=== PATIENT | female | born 1965 | race Caucasian/White ===

== ENCOUNTER → 2016-12-08 | Outpatient (CLI) | payer OTHER | LOC: CIMAGING 11:07 | DX: Z12.31 Encounter for screening mammogram for malignant neoplasm of breast (principal) | CPT/HCPCS: G0202 ==

== ENCOUNTER → 2017-12-07 | Outpatient (CLI) | payer OTHER | LOC: CIMAGING 17:10 | PROVIDERS: ATTEND Family Medicine | DX: R07.81 Pleurodynia (principal) | CPT/HCPCS: 71101-PO ==

== ENCOUNTER → 2018-07-12 | Outpatient (CLI) | payer OTHER | LOC: CIMAGING 12:21 | PROVIDERS: ATTEND Family Medicine | DX: R91.8 Other nonspecific abnormal finding of lung field (principal); J45.30 Mild persistent asthma, uncomplicated; M32.9 Systemic lupus erythematosus, unspecified | CPT/HCPCS: 71046-PO ==

== ENCOUNTER → 2018-10-01 | Outpatient (CLI) | payer OTHER | LOC: CIMAGING 08:44 | PROVIDERS: ATTEND Family Medicine | DX: Z12.31 Encounter for screening mammogram for malignant neoplasm of breast (principal) ==

== ENCOUNTER → 2018-10-08 | Outpatient (CLI) | payer OTHER | LOC: BMCIMAGING 10:14 | PROVIDERS: ATTEND Family Medicine | DX: R92.8 Other abnormal and inconclusive findings on diagnostic imaging of breast (principal) ==

== ENCOUNTER 2018-12-20 13:15 | Emergency (ER) | payer OTHER ==
--- NOTE | 2018-12-20 13:41 | EDPHY ---
H & P <Sudheer Laird - Last Filed: 12/20/18 16:51> Smoking Status: Never smoked <Shelli Ibrahim - Last Filed: 12/25/18 08:45> Time Seen by Provider: 12/20/18 13:24 HPI/ROS: CHIEF COMPLAINT: Left leg pain and swelling History by patient HISTORY OF PRESENT ILLNESS: 53-year-old woman presents complaining of pain in her left calf for about 1 week and then over the last 24-36 hr leg swelling. She notices some of her veins in her legs were swelling up. She denies any trauma. She tried icing it raising it taking some Tylenol last night with minimal relief although she feels the swelling is slightly down today compared to last night. 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 She denies any fever chills or redness. There is no shortness of breath or pleuritic chest pain. She has never smoked. She is not on any supplemental estrogen. Her father did have a blood clot in his leg. She has lupus for which she takes medications. There has been no recent surgeries or immobilization. She has had no long [place] air travel. REVIEW OF SYSTEMS: As in HPI, and all other systems reviewed and are negative (Shelli Ibrahim) Physical Exam: General Appearance: Alert and no distress. Head: Normocephalic, atraumatic Eyes: Pupils equal and round no injection. Extraocular movements are intact. Musculoskeletal: Neck is supple and nontender. Extremities: Left leg positive 1+ pitting edema to knee with marked calf tenderness, positive Homans, positive superficial varicose veins, DP and PT pulses 2+ and equal to the right, distal sensation intact, full range of motion of left hip, knee and ankle, no erythema or calor, positive dry cracked skin Skin: No rashes or lesions except as described above. (Shelli Ibrahim) Constitutional: Initial Vital Signs Temperature (C) 36.6 C 12/20/18 13:26 Heart Rate 82 12/20/18 13:26 Respiratory Rate 18 12/20/18 13:26 Blood Pressure 138/81 H 12/20/18 13:26 O2 Sat (%) 98 12/20/18 13:26 O2 Delivery Mode Room Air Allergies/Adverse Reactions: CLEAN[employer] Allergy (Intermediate, Uncoded 09/22/11 14:27) ASTHMA Home Medications: Medication Instructions Recorded Levothyroxine [Synthroid] 09/19/11 MDM/Departure - [facility] Imaging: Discussed imaging studies w/ member service representative Radiologist <Sudheer Laird - Last Filed: 12/20/18 16:51> <Shelli Ibrahim - Last Filed: 12/25/18 08:45> - [facility] ED Course/Re-evaluation: 3:04 p.m. discussed the results with the patient. She is reassured. She is very minimal swelling in her calf the appear to be secondary to varicose veins. Slight tenderness. I do not appreciate any edema of her ankle or foot. No cellulitis or sign of infection. No significant bruising. Normal pulses. No discoloration. Discussed follow-up in the next couple of days. She will continue to elevate her leg. We discussed May-Thurner syndrome however she has never had the symptoms before. Discussed indications for returning. (Sudheer Laird) Patient presents with left greater than right leg swelling and intermediate to high risk for DVT. There is no clinical evidence for cellulitis or a vascular impairment. Doppler ultrasound lower extremity was ordered and results are pending. I signed out care to Dr. Sudheer Laird pending results of the ultrasound. (Shelli Ibrahim) - Depart Disposition: Home, Routine, Self-Care Clinical Impression: Left leg swelling Condition: Fair Instructions: Edema (ED) Referrals: Светлана Crawford MD [Primary Care Provider] - 2-3 days, if not improved
[2018-12-20 15:15] VITALS: BP 147/84
== END 2018-12-20 15:13 | disposition home or self-care (01) ==
LOC: CED 13:15
DX: M79.89 Other specified soft tissue disorders (principal)
CPT/HCPCS: 93971-PO; 99284-ER